=== PATIENT | female | born 1970 | race Caucasian/White ===

== ENCOUNTER 2023-10-29 12:55 | Day surgery (SDC) | payer BC ==
[2023-10-29] MEDS ORDERED: Midazolam 1 MG/ML 2 ML SDV IV ONE (12:56)
[2023-10-29] MEDS ORDERED: Propofol 200 MG/20 ML SDV IV ONE (12:56)
[2023-10-29] MEDS ORDERED: Sodium Chloride 0.9% 10 ML Syringe FLUSH PRN (13:00)
[2023-10-29] MEDS ORDERED: Lactated Ringers 1,000 ML IV SCH (13:00)
[2023-10-29] MEDS ORDERED: Midazolam 1 MG/ML 2 ML SDV ONE ×2 (14:00→14:22)
[2023-10-29] MEDS ORDERED: Propofol 200 MG/20 ML SDV ONE ×2 (14:00→14:22)
[2023-10-29 16:08] VITALS: PULSE 70
[2023-10-29 16:27] VITALS: BP 153/73
== END 2023-10-29 16:30 | disposition home or self-care (01) ==
LOC: KA.SDS 12:55
PROVIDERS: ATTEND Family Medicine
DX: Z12.11 Encounter for screening for malignant neoplasm of colon (principal); K57.30 Diverticulosis of large intestine without perforation or abscess without bleeding; K56.2 Volvulus; F32.A Depression, unspecified; Z79.899 Other long term (current) drug therapy; Z98.890 Other specified postprocedural states
CPT/HCPCS: 81025; J2250; J2704; J7120